=== PATIENT | female | born 1980 | race Caucasian/White ===

== ENCOUNTER 2018-04-11 10:38 | Emergency (ER) | payer SELFPAY, MEDICAID | END 2018-04-11 11:36 | disposition left against medical advice (07) | LOC: FTE 11:36 | DX: Z53.21 Procedure and treatment not carried out due to patient leaving prior to being seen by health care provider (principal) ==

== ENCOUNTER 2018-04-30 15:28 | Emergency (ER) | payer OTHER ==
[2018-04-30] MEDS: FAMOTIDINE 20 MG INJ IV (15:48)
[2018-04-30] MEDS: EPINEPHrine 1 MG INJ IM (15:48)
[2018-04-30] MEDS: DIPHENHYDRAMINE 50 MG INJ IV (15:48)
[2018-04-30] MEDS: METHYLPREDNISOLONE 125 MG INJ IV (15:48)
[2018-04-30] MEDS: ONDANSETRON 4 MG INJ IV (16:44)
== END 2018-04-30 17:40 | disposition home or self-care (01) ==
LOC: E/R 15:28
DX: T78.3XXA Angioneurotic edema, initial encounter (principal); I10 Essential (primary) hypertension; F17.210 Nicotine dependence, cigarettes, uncomplicated
CPT/HCPCS: 81025; 96372; 96374; 96375; 99284-25

== ENCOUNTER 2018-08-20 20:14 | Emergency (ER) | payer OTHER ==
[2018-08-20] MEDS: FAMOTIDINE 20 MG TAB PO (21:12)
[2018-08-20] MEDS: DIPHENHYDRAMINE 25 MG CAP PO (21:12)
[2018-08-20] MEDS: predniSONE 20 MG TAB PO (21:13)
== END 2018-08-20 21:50 | disposition home or self-care (01) ==
LOC: E/R 20:14
DX: R07.0 Pain in throat (principal); I10 Essential (primary) hypertension; F17.210 Nicotine dependence, cigarettes, uncomplicated
CPT/HCPCS: 99283; J7512